=== PATIENT | male | born 1950 | race Caucasian/White ===

== ENCOUNTER 2019-04-30 02:53 | Emergency (ER) | payer BC, SELFPAY ==
[2019-04-30] VITALS (22 sets, daily range): BP systolic 76–120; BP diastolic 53–75; PULSE 88–169; RESP 14–21; TEMP 36.6–36.8; O2SAT 84–99
--- NOTE | ~2019-04-30 | XR_ITS ---
EXAMINATION: XR chest 1V portable DATE: 04/30/2019 03:22 INDICATION: Shortness of breath. TECHNIQUE: A single frontal view of the chest was obtained. COMPARISON: Chest CT 04/30/2019 FINDINGS: There are innumerable nodules in the lungs bilaterally. No pleural effusion or pneumothorax . The heart size is normal. IMPRESSION: 1. Innumerable pulmonary nodules, consistent with metastatic disease versus infection. Reviewed, dictated and finalized at location A. [employer] SYSTEM OPERATOR IMPRESSION: 1. Innumerable pulmonary nodules, consistent with metastatic disease versus inf ection.
--- NOTE | ~2019-04-30 | CT_ITS ---
EXAMINATION: CTA chest PE protocol DATE: 04/30/2019 04:48 INDICATION: Hypoxia. Tachycardia. TECHNIQUE: Computed tomography angiography (CTA) of the chest was performed with 100 mL Omnipaque-350 intravenous contrast timed to evaluate the pulmonary arteries. Coronal maximum intensity projection 3D-reconstructions were created by the technologist. Automated exposure control and iterative reconst ruction technique were employed. The dose-length product was 455.31 mGy-cm. COMPARISON: Chest single view 04/30/2019 FINDINGS: There is mild emphysema. There are are innumerable nodules in the lungs bilaterally measuri ng up to 15 mm. There is mild atelectasis in the lower lobes. No pleural effusion. The heart size is normal. No pericardial effusion. There is no pulmonary embolus. There is a 15 mm mass in left adrenal gland measuring soft tissue attenuation. There are numerous scattered mixed lytic and sclerotic lesi ons of bone. There is a healing pathologic fracture of left clavicle. There is mild chronic height lo ss of many vertebral bodies. IMPRESSION: 1. No pulmonary embolus. 2. Innumerable pulmonary nodules, consistent with metastatic disease versus infection. 3. Mild emphysema. 4. Widespread bone lesions, consistent with metastatic disease. 5. 15 mm mass in left adrenal gland, which may be an adenoma or metastatic disease. Reviewed, dictated and finalized at location A. LITY SPECIALIST IMPRESSION: 1. No pulmonary embolus. 2. Innumerable pulmonary nodules, consistent with metastatic disease versus inf ection. 3. Mild emphysema. 4. Widespread bone lesions, consistent with metastatic disease. 5. 15 mm mass in left adrenal gland, which may be an adenoma or metastatic dise ase.
--- NOTE | 2019-04-30 02:59 | ED.GENADULT ---
HPI - General Adult General Chief complaint: Shortness of Breath/Dyspnea Stated complaint: sob Time Seen by Provider: 04/30/19 03:07 Source: patient, family and EMS Mode of arrival: EMS Limitations: no limitations History of Present Illness HPI narrative: The patient is a 69-year-old female with a history of renal cell carcinoma with bone metastases who presents for evaluation of shortness of breath. Patient states he awakened earlier this evening feeling very short of breath and feeling palpitations. He denied any chest pain or chest pressure. Patient states he has a history of this in the past, and has required cardioversion. Patient has experienced cough recently, but denies any fever, no leg swelling, no history of blood clot. EMS reported that patient was tachycardic, hypotensive at the time of their arrival. Related Data Allergies Allergy/AdvReac Type Severity Reaction Status Date / Time ibuprofen Allergy Unknown Verified 03/09/15 10:41 Penicillins Allergy Unknown Verified 03/09/15 10:41 Review of Systems Review of Systems: Narrative: CONSTITUTIONAL: Denies fever, chills, or sweats. CARDIOVASCULAR: Denies chest pain, reports palpitations, denies leg edema RESPIRATORY: Denies cough, reports dyspnea GASTROINTESTINAL: Denies abdominal pain, nausea, vomiting, or diarrhea. GENITOURINARY: Denies dysuria or hematuria. SKIN: Denies rash or itching. MUSCULOSKELETAL: Denies back pain, joint pain, or myalgia. NEUROLOGIC: Denies headache, numbness, or weakness. [facility] Past Medical History Medical History (Updated 04/30/19 @ 05:42 by Roberta Gonzalez MD) Renal cell carcinoma Family History Family History (Updated 03/09/15 @ 10:45 by DOCTOR UNKNOWN) Father Asthma Mother Family history of malignant neoplasm Sibling Family history of lung cancer Family history of type 2 diabetes mellitus Acute myocardial infarction Social History Social History Smoking status: Former smoker Second hand tobacco smoke exposure: No Smoking end date: 04/16/08 Alcohol intake: current Exam Narrative: Exam Narrative: GENERAL: Awake, conversant HEAD: Normocephalic, atraumatic. EYES: PERRLA and EOMI. ENT: Nares clear, no rhinorrhea or epistaxis. Mucous membranes moist. NECK: Supple. CHEST: Clear to auscultation. No respiratory distress. HEART: Tachycardic rate, regular rhythm. No murmur heard. Normal peripheral pulses. ABDOMEN: Scaphoid, soft, nontender, nondistended, normal active bowel sounds. EXTREMITIES: Normal range of motion. No edema. SKIN: Pale, no rash NEURO:No focal deficits. Alert and oriented x3 Course Vital Signs Vital signs: Vital Signs Temperature 36.6 C 04/30/19 02:55 Pulse Rate 169 H 04/30/19 02:55 Respiratory Rate 19 04/30/19 02:55 Blood Pressure 80/61 L 04/30/19 02:55 Pulse Oximetry 96 04/30/19 02:55 Temperature 36.6 C 04/30/19 02:55 Pulse Rate 100 04/30/19 04:25 Respiratory Rate 18 04/30/19 04:25 Blood Pressure 93/61 L 04/30/19 04:25 Pulse Oximetry 92 04/30/19 04:25 Procedures Procedural Sedation Procedural Sedation #1: Procedural Sedation Date: 04/30/19 Procedural Sedation Time: 03:30 Provider Performed: sedation and procedure Informed Consent Obtained: yes Equipment in Room: bag and mask, capnography, security monitor, crash cart, oxygen, pulse oximeter and suction Plan for Sedation: moderate sedation ASA Class: III Mallampati Classification: class I NPO Status: last solid food (hours ago) Explanation to Patient/Family: Risk/Benefits/Alternatives and Pt/Family agreed with plan Pt. Educated on Procedural Sedation: Yes Re-evaluated immediately prior: Yes Preparation: security monitor applied, pulse oximeter, capnometry used, supplemental O2 applied, reversal agents at bedside, suction/airway equipment at bedside and IV secured Fentanyl: IV Fentanyl dose (mcg): 50
--- NOTE | 2019-04-30 03:00 | ECG_ITS ---
Measurements Intervals [place] Rate: 169 P: [place]: 0 QRS: 73 QRSD: 125 T: 65 QT: 274 QTc: 461 Interpretive Statements SUPRAVENTRICULAR TACHYCARDIA RIGHT BUNDLE BRANCH BLOCK ABNORMAL ECG Electronically Signed On 04-30-2019 14:13:46 HUB INVENTORY SPECIALIST by Avni Sampson D.O.
[2019-04-30] MEDS: SODIUM CHLORIDE 0.9% IV 1,000 ML 999 ML IV CONT ×2 (03:11→04:25)
--- NOTE | 2019-04-30 03:28 | ECG_ITS ---
Measurements Intervals [place] Rate: 107 P: 75 OR: 157 QRS: 61 QRSD: 132 T: 61 QT: 333 QTc: 444 Interpretive Statements SINUS TACHYCARDIA RIGHT BUNDLE BRANCH BLOCK ABNORMAL ECG Electronically Signed On 05-02-2019 7:07:31 CLINICAL RESEARCH DIRECTOR by Avni Sampson D.O.
[2019-04-30 03:50] LABS: Basophils Percent Auto 0.3 % (0.2-1.2); Eosinophils Absolute Auto 0.1 K/mm3 (0-0.3); Eosinophils Percent Auto 0.9 % (0-4.4); Hemoglobin 7.6 g/dL (14.0-18.0); Immature Granulocyte Percent A 1.5 % (0-0.5); Lymphocytes Absolute Auto 1.18 K/mm3 (0.9-3.2); Lymphocytes Percent Auto 17.3 % (18.3-44.2); Mean Corpuscular HGB Conc 28.1 g/dl (32-36); Mean Corpuscular Hemoglobin 21.5 pg (26-34); Mean Corpuscular Volume 76.5 fl (80-100); Mean Platelet Volume 8.6 fl (7.4-10.4); Monocytes Absolute Auto 0.7 K/mm3 (0.1-0.6); Monocytes Percent Auto 9.8 % (2.6-8.5); Neutrophils Absolute Auto 4.8 K/mm3 (1.3-6.7); Neutrophils Percent Auto 70.2 % (45.5-73.1); Platelet Count Result 342 k/mm3 (150-375); Red Blood Count 3.53 M/mm3 (4.6-6.20); Red Cell Distribution Width 16.9 % (11.5-14.5); White Blood Count 6.8 K/mm3 (4.5-10.0)
--- NOTE | 2019-04-30 03:55 | PC.NURSE ---
pt placed on 15L nonrebreather due to pt 02 saturation 85% on 4L
[2019-04-30 04:02] LABS: INR 1.2; Prothrombin Time 14.9 Seconds (11.1-14.7)
[2019-04-30 04:03] LABS: Partial Thromboplastin Time 48.8 SECONDS (22.3-36.8)
[2019-04-30 04:05] LABS: Alanine Aminotransferase 9 U/L (4-50); Albumin Level 3.1 g/dL (3.5-5.1); Alkaline Phosphatase 174 U/L (38-126); Aspartate Amino Transferase 15 U/L (17-59); Bilirubin,Total 0.4 mg/dL (0.2-1.3); Blood Urea Nitrogen 15 mg/dL (9-20); Calcium 9.5 mg/dL (8.4-10.2); Carbon Dioxide 24 mmol/L (22-30); Chloride 95 mmol/L (98-107); D Dimer 2.04 ug/mL (<0.48); Estimated CRCL calculation 47 ml/min; Estimated Glomerular Filt Rate 60; Glucose 133 mg/dL (75-110); Potassium 4.4 mmol/L (3.4-5.0); Sodium 129 mmol/L (137-145)
--- NOTE | 2019-04-30 04:06 | PC.NURSE ---
-4mg zofran 0321 -50 mcg fentanyl 0322 -5mg etomidate 0324 -pt had syncronized cardioversion @ 200 joules w/ talon vazquez at bedside @ 0324 -pt put on 4L NC due to o2 saturation 84% on RA at 0326 -0326: 110 HR, 20R, 99% 4L NC, 101/74 will continue to monitor pt
[2019-04-30 04:17] LABS: NT Pro B Type Natriuretic Pept 319 PG/ML (5-100); Troponin I 0.018 ng/mL (0.000-0.034)
[2019-04-30 04:45] LABS: Add Urine Microscopic? YES; Appearance Urine Clear (Clear); Bacteria Urine Trace /hpf; Bilirubin Urine Negative (Negative); Blood Urine Negative (Negative); Color Urine Yellow (Yellow); Glucose Urine UA Negative (Negative); Hyaline Casts Urine 20-29 /lpf; Ketones Urine Negative (Negative); Leukocyte Esterase Ur Negative LEU/UL (Negative); Mucus Urine Rare /lpf; Nitrate Urine Negative (Negative); Protein Urine 2+ mg/dL (Negative); Specific Grav Ur 1.016 (1.001-1.035); Squamous Epithelial Cell Urine Rare /hpf (Few); Urobilinogen Urine Negative mg/dL (<2.0); WBC Urine 0-3 /hpf
[2019-04-30 04:52] LABS: Amphetamine Screen Urine Negative (Negative); Barbiturate Screen Urine Negative (Negative); Benzodiazepines Screen Urine Negative (Negative); Cannabinoid Screen Urine Negative (Negative); Cocaine Screen Urine Negative (Negative); Methadone Screen Urine Negative (Negative); Opiate Screen Urine Positive (Negative); Phencyclidine Screen Urine Negative (Negative)
== END 2019-04-30 06:14 | disposition home or self-care (01) ==
PROVIDERS: Emergency Provider Emergency Medicine; PCP Internal Medicine
DX: I47.1 Supraventricular tachycardia (principal); C64.9 Malignant neoplasm of unspecified kidney, except renal pelvis; C79.51 Secondary malignant neoplasm of bone; Z87.891 Personal history of nicotine dependence; R91.8 Other nonspecific abnormal finding of lung field; E27.8 Other specified disorders of adrenal gland; I45.10 Unspecified right bundle-branch block
CPT/HCPCS: 36415; 71045; 71275; 80053; 80307; 81001; 83880; 84484; 85025; 85380; 85610; 85730; 92960; 93005; 99285; J0153; J2405; J3010; J7030; Q9967